=== PATIENT | female | born 1990 | race Caucasian/White ===

== ENCOUNTER 2020-10-05 19:14 | Emergency (ER) | payer SELFPAY ==
[~2020-10-05] VITALS: Ht 172.7 cm; Wt 90.7 kg
[2020-10-05 20:32] LABS: Basophils # (auto) 0 10 ^3/uL (0-0.2); Basophils % (auto) 0.2 % (0.0-2.0); Eosinophils # (auto) 0 10 ^3/uL (0-0.8); Eosinophils % (auto) 0.7 % (0.0-7.0); Hematocrit 36.8 % (36.0-46.0); Hemoglobin 12.6 g/dL (12.2-16.2); Lymphocytes # (auto) 1.3 10 ^3/uL (0.4-5.4); Lymphocytes % (auto) 23.2 % (10.0-50.0); Mean Corpuscular Hemoglobin 30.3 pg (28.0-32.0); Mean Corpuscular Hgb Conc. 34.3 g/dL (32.0-36.0); Mean Corpuscular Volume 88.5 fL (80.0-100.0); Monocytes # (auto) 0.3 10 ^3/uL (0-1.3); Monocytes % (auto) 4.8 % (0.0-12.0); Neutrophils % (auto) 71.1 % (37.0-80.0); Platelet Count (auto) 176 10^3/uL (140-450); Red Blood Cells 4.16 10^6/uL (4.0-5.20); Red Cell Distribution Width 13.2 % (11.8-14.3); White Blood Cell 5.7 10^3/uL (4.4-10.8)
[2020-10-05 20:39] LABS: Albumin 3.6 g/dL (3.4-5.0); Calcium 8.9 mg/dL (8.5-10.1)
[2020-10-05 20:42] LABS: BUN/Creatinine Ratio 23.5; Bilirubin, Total 0.4 mg/dL (0.2-1.0); Total Protein 7.4 g/dL (6.4-8.2)
[2020-10-06 01:03] VITALS: BP 124/73
== END 2020-10-06 01:26 | disposition home or self-care (01) ==
LOC: ER 19:14
DX: N83.202 Unspecified ovarian cyst, left side (principal); N83.201 Unspecified ovarian cyst, right side
CPT/HCPCS: 36415; 76801; 76817; 80053; 84702; 85025

== ENCOUNTER 2020-10-07 10:51 | Inpatient (IN) | payer OTHER ==
[~2020-10-07] VITALS: Ht 172.7 cm; Wt 109.5 kg
[2020-10-07] MEDS ORDERED: ACETAMINOPHEN 325 MG TAB PO ONE (13:15)
[2020-10-07] MEDS ORDERED: ONDANSETRON HCL 4 MG/2 ML VIAL IV ONE (14:00)
[2020-10-07] MEDS ORDERED: MORPHINE SULFATE 4 MG/ML SYR/VIAL IV ONE (14:00)
[2020-10-07 14:13] LABS: Basophils # (auto) 0 10 ^3/uL (0-0.2); Basophils % (auto) 0.3 % (0.0-2.0); Eosinophils # (auto) 0 10 ^3/uL (0-0.8); Eosinophils % (auto) 0.5 % (0.0-7.0); Hematocrit 37.7 % (36.0-46.0); Hemoglobin 12.6 g/dL (12.2-16.2); Lymphocytes # (auto) 0.6 10 ^3/uL (0.4-5.4); Lymphocytes % (auto) 16.7 % (10.0-50.0); Mean Corpuscular Hemoglobin 29.7 pg (28.0-32.0); Mean Corpuscular Hgb Conc. 33.5 g/dL (32.0-36.0); Mean Corpuscular Volume 88.6 fL (80.0-100.0); Monocytes # (auto) 0.3 10 ^3/uL (0-1.3); Monocytes % (auto) 8.2 % (0.0-12.0); Neutrophils # (auto) 2.6 10 ^3/uL (1.6-8.6); Neutrophils % (auto) 74.3 % (37.0-80.0); Nucleated Red Blood Cells % 0.1 %; Platelet Count (auto) 149 10^3/uL (140-450); Red Blood Cells 4.26 10^6/uL (4.0-5.20); Red Cell Distribution Width 13.3 % (11.8-14.3); White Blood Cell 3.5 10^3/uL (4.4-10.8)
[2020-10-07 14:21] LABS: Albumin 3.7 g/dL (3.4-5.0); Calcium 8.5 mg/dL (8.5-10.1)
[2020-10-07 14:24] LABS: BUN/Creatinine Ratio 23.2; Bilirubin, Total 0.4 mg/dL (0.2-1.0); Total Protein 7.4 g/dL (6.4-8.2)
[2020-10-07 15:48] LABS: Urine WBC None Seen /hpf (0 - 5)
[2020-10-07 15:54] LABS: Urine Bacteria NONE SEEN /hpf (None Seen); Urine Blood Negative /uL (Negative); Urine Specific Gravity 1.011 (1.001-1.035)
[2020-10-07] MEDS ORDERED: ONDANSETRON HCL 4 MG/2 ML VIAL IV PRN ×2 (16:45→18:15)
[2020-10-07] MEDS: SODIUM CHLORIDE 0.9% 1,000 ML IV SCH ×2 (16:45→21:00)
[2020-10-07] MEDS ORDERED: HYDROmorphone HCL 2 MG/ML VL IV PRN ×3 (16:45→18:15)
[2020-10-07] MEDS ORDERED: NALOXONE HCL 0.4 MG/ML VIAL IV PRN (18:15)
[2020-10-07] MEDS ORDERED: MIDAZOLAM HCL 1MG/1ML-2 ML VIAL ONE (18:28)
[2020-10-07] MEDS ORDERED: ROCURONIUM 10MG/ML 10ML VIAL IV ONE (18:28)
[2020-10-07] MEDS ORDERED: fentaNYL CITRATE 100 MCG/2 ML VL ONE (18:28)
[2020-10-07] MEDS ORDERED: PROPOFOL 10 MG/ML 20 ML IV ONE (18:29)
[2020-10-07] MEDS ORDERED: LIDOCAINE 2% (LOCAL ANESTH.) PF 5ml SDV ONE (18:29)
[2020-10-07 20:53] VITALS: BP 105/45
[2020-10-07 23:23] LABS: INR 1.07 (0.9-1.15); Partial Thromboplastin Time 24.3 sec (23.0-31.2)
[2020-10-08] VITALS: BP 117/61
[2020-10-08] MEDS: SODIUM CHLORIDE 0.9% 1,000 ML IV SCH ×3 (00:45→16:45)
[2020-10-08 08:00] VITALS: BP 111/73
[2020-10-08] MEDS ORDERED: TOPI25TA32 PO (08:11)
[2020-10-08] MEDS ORDERED: TOPIRAMATE 100 MG TAB PO ONE (12:30)
[2020-10-08 12:32] VITALS: BP 120/71
[2020-10-08] MEDS ORDERED: ONDANSETRON HCL 4 MG/2 ML VIAL IV PRN (12:45)
[2020-10-08] MEDS ORDERED: NALOXONE HCL 0.4 MG/ML VIAL IV PRN (12:45)
[2020-10-08] MEDS ORDERED: diphenhdrAMINE HCL 50 MG/1 ML VL IV PRN (12:45)
[2020-10-08] MEDS ORDERED: SUCCINYLCHOLINE CHLORIDE 20 MG/ML 10ML VIAL IV ONE (14:39)
[2020-10-08] MEDS ORDERED: fentaNYL CITRATE 5 ML ONE (14:41)
[2020-10-08] MEDS ORDERED: MIDAZOLAM HCL 1MG/1ML-2 ML VIAL ONE (14:41)
[2020-10-08] MEDS ORDERED: ROCURONIUM 10MG/ML 10ML VIAL IV ONE (14:41)
[2020-10-08] MEDS ORDERED: ceFAZolin 1GM/50ML 50 ML IV ONE (15:03)
[2020-10-08] MEDS ORDERED: GLYCOPYRROLATE 0.2 MG/ML 1ML VIAL ONE (16:13)
[2020-10-08] MEDS: HYDROcodone-ACET 10/325MG TAB PO PRN (17:20)
[2020-10-08 17:25] VITALS: BP 125/74
[2020-10-09] VITALS: BP 108/67
[2020-10-09] MEDS: HYDROcodone-ACET 10/325MG TAB PO PRN ×2 (03:48→12:06)
[2020-10-09 08:29] VITALS: BP 119/71
[2020-10-09 16:03] VITALS: BP 138/68
== END 2020-10-09 16:10 | disposition home or self-care (01) | DRG 817 ==
LOC: ER 10:51 → OVERFLOW 16:45 → EAST 20:53
PROVIDERS: ADMIT Specialist; ATTEND Internal Medicine
PROC: 0UB14ZZ Excision of Left Ovary, Percutaneous Endoscopic Approach (ICD-10-PCS; 2020-10-08)
PROC: 10D27ZZ Extraction of Products of Conception, Ectopic, Via Natural or Artificial Opening (ICD-10-PCS; principal; 2020-10-08 14:30)
DX: O00.202 Left ovarian pregnancy without intrauterine pregnancy (principal); U07.1 COVID-19; O98.511 Other viral diseases complicating pregnancy, first trimester; N80.9 Endometriosis, unspecified; G40.909 Epilepsy, unspecified, not intractable, without status epilepticus; N83.202 Unspecified ovarian cyst, left side; N83.201 Unspecified ovarian cyst, right side; Z87.19 Personal history of other diseases of the digestive system
CPT/HCPCS: 36415; 76801; 76817; 80053; 81001; 84702; 85025; 85610; 85730; 86850; 86900; 86901; 87081; 87426; 96374; 96375; G0378; J0330; J0690; J2001; J2250; J2405; J2704